=== PATIENT | female | born 1980 | race Two or more races ===

== ENCOUNTER 2018-06-08 18:25 | Emergency (ER) | payer MEDICAID ==
[~2018-06-08] VITALS: Ht 154.9 cm; Wt 77.1 kg
[2018-06-08] MEDS ORDERED: NKM (18:41)
--- NOTE | 2018-06-08 18:45 | NUR ---
ED Nurse Note: Pt walked in due to chest pain on sternal area started 1730 today. Pain 2/10 ira. Pt stated it happend to her before and was relieved by position change. Pain worsen with movement. AOx4, VSS ira. Will cont to monitor.
[2018-06-08 18:48] VITALS: BP 120/84
--- NOTE | 2018-06-08 19:11 | NUR ---
ED Nurse Note: Received report from Raegan Hernández RN. Pt in restroom getting urine sample. Day shift RN reported stable VS, sternal chest pain 2/10 and labs already drawn. Pt AAOx4, ambulatory and stable. Will continue to monitor.
[2018-06-08] MEDS ORDERED: Lidocaine 2% Visc 15ml soln ORAL ONE (19:30)
[2018-06-08 19:38] LABS: ANION GAP 8 mmol/L (5-15); BLOOD UREA NITROGEN 14 mg/dL (7-18); CALCIUM 9.1 MG/DL (8.5-10.1); CARBON DIOXIDE 26 MMOL/L (21-32); CHLORIDE 104 MMOL/L (98-107); CREATININE 1.1 MG/DL (0.55-1.30); POTASSIUM 3.5 MMOL/L (3.5-5.1); SODIUM 138 MMOL/L (136-145)
[2018-06-08 19:51] LABS: ALANINE AMINOTRANSFERASE 39 U/L (12-78); ALBUMIN 3.6 G/DL (3.4-5.0); ALBUMIN/GLOBULIN RATIO 0.8 (1.0-2.7); ALKALINE PHOSPHATASE 90 U/L (46-116); ASPARTATE AMINO TRANSFERASE 21 U/L (15-37); BILIRUBIN,TOTAL 0.3 MG/DL (0.2-1.0); CKMB 1.2 NG/ML (0.0-3.6); CREATINE KINASE 114 U/L (26-308)
[2018-06-08 19:53] LABS: BASOPHILS % (AUTO) 1.1 % (0.0-2.0); EOSINOPHILS % (AUTO) 2.9 % (0.0-3.0); HEMOGLOBIN 12.4 G/DL (12.0-16.0); LYMPHOCYTES % (AUTO) 20.2 % (20.0-45.0); MEAN CORPUSCULAR VOLUME 84 FL (80-99); MONOCYTES % (AUTO) 6.1 % (1.0-10.0); NEUTROPHILS % (AUTO) 69.7 % (45.0-75.0); PLATELET COUNT 239 K/UL (150-450); RED BLOOD COUNT 4.43 M/UL (4.20-5.40); RED CELL DISTRIBUTION WIDTH 12.5 % (11.6-14.8); WHITE BLOOD COUNT 9.3 K/UL (4.8-10.8)
--- NOTE | 2018-06-08 20:08 | Emergency Room Report ---
History of Present Illness General Chief Complaint: Chest Pain Source: Patient Present Illness HPI This patient states that around 5 PM today she developed pain in her mid lower chest. She states that she also got nauseated and became short of breath. She states that both her hands became tingly at that time. She states that the symptoms have persisted. She did have a meal about an hour and a half prior to the onset of the symptoms. She has had these same symptoms about 4 times in the past. She always has a negative evaluation. She denies recent illness. She denies fever or chills. She denies abdominal pain. She denies dysuria or hematuria. She denies headache or neck pain. She has no other complaints. Allergies: Coded Allergies: No Known Allergies (Unverified , 06/08/18) Patient History Past Medical History: none, see triage record Past Surgical History: none Social History: Denies: smoking, alcohol use, drug use Last Menstrual Period: may Now: No Reviewed Nursing Documentation: PMH: Agreed; PSxH: Agreed Nursing Documentation-PMH Past Medical History: No Stated History Review of Systems All Other Systems: negative except mentioned in HPI Physical Exam Vital Signs Date Time Temp Pulse Resp B/P (MAP) Pulse Ox O2 Delivery O2 Flow Rate FiO2 06/08/18 18:33 97.9 89 16 95 Room Air 06/08/18 18:48 120/84 Sp02 EP Interpretation: reviewed, normal General Appearance: no apparent distress, alert, GCS 15, non-toxic Head: normocephalic, atraumatic Eyes: bilateral eye normal inspection, bilateral eye PERRL ENT: hearing grossly normal, normal pharynx, no angioedema, normal voice Neck: full range of motion, supple/symm/no masses Respiratory: chest non-tender, lungs clear, normal breath sounds, no respiratory distress, no retraction, no accessory muscle use, speaking full sentences Cardiovascular #1: regular rate, rhythm, no edema Gastrointestinal: normal bowel sounds, non tender, soft, non-distended, no guarding, no rebound Rectal: deferred Musculoskeletal: back normal, gait/station normal, normal range of motion, non- tender Neurologic: alert, oriented x3, responsive, motor strength/tone normal, sensory intact, speech normal Psychiatric: judgement/insight normal, memory normal, mood/affect normal, no suicidal/homicidal ideation Skin: normal color, no rash, warm/dry, well hydrated Medical Decision Making Diagnostic Impression: Primary Impression: Chest pain ER Course This patient has nonspecific chest pain. Given the length of symptoms, this workup is very reassuring with negative cardiac enzymes, normal EKG, and normal chest x-ray. The patient is low risk and his symptoms are atypical for acute coronary syndrome. I have very low suspicion for PE, aortic dissection or pneumothorax based on history/physical, laboratory and radiologic workup. I suspect this patient has acid reflux/gastritis. I considered other concerning differentials, to include appendicitis, cholelithiasis, cholecystitis, pancreatitis, perforated viscus, aortic aneurysm, and pyelonephritis to name a few. However, laboratory workup in combination with medical and surgical history and physical exam makes these unlikely at this time. I did educate the patient on close return precautions and followup instructions. Laboratory Tests Test 06/08/18 18:55 White Blood Count 9.3 K/UL (4.8-10.8) Red Blood Count 4.43 M/UL (4.20-5.40) Hemoglobin 12.4 G/DL (12.0-16.0) Hematocrit 37.0 % (37.0-47.0) Mean Corpuscular Volume 84 FL (80-99) Mean Corpuscular Hemoglobin 27.9 PG (27.0-31.0) Mean Corpuscular Hemoglobin Concent 33.4 G/DL (32.0-36.0) Red Cell Distribution Width 12.5 % (11.6-14.8) Platelet Count 239 K/UL (150-450) Mean Platelet Volume 6.5 FL (6.5-10.1) Neutrophils (%) (Auto) 69.7 % (45.0-75.0) Lymphocytes (%) (Auto) 20.2 % (20.0-45.0) Monocytes (%) (Auto) 6.1 % (1.0-10.0) Eosinophils (%) (Auto) 2.9 % (0.0-3.0) Basophils (%) (Auto) 1.1 % (0.0-2.0) Urine HCG, Qualitative Negative (NEGATIVE) Sodium Level 138 MMOL/L (136-145) Potassium Level 3.5 MMOL/L (3.5-5.1) Chloride Level 104 MMOL/L (98-107) Carbon Dioxide Level 26 MMOL/L (21-32) Anion Gap 8 mmol/L (5-15) Blood Urea Nitrogen 14 mg/dL (7-18) Creatinine 1.1 MG/DL (0.55-1.30) Estimate Glomerular Filtration Rate 56.5 mL/min (>60) Glucose Level 124 MG/DL (74-106) H Calcium Level 9.1 MG/DL (8.5-10.1) Total Bilirubin 0.3 MG/DL (0.2-1.0) Aspartate Amino Transferase (AST) 21 U/L (15-37) Alanine Aminotransferase (ALT) 39 U/L (12-78) Alkaline Phosphatase 90 U/L (46-116) Total Creatine Kinase 114 U/L (26-308) Creatine Kinase MB 1.2 NG/ML (0.0-3.6) Creatine Kinase MB Relative Index 1.0 Troponin I 0.000 ng/mL (0.000-0.056) Total Protein 7.9 G/DL (6.4-8.2) Albumin 3.6 G/DL (3.4-5.0) Globulin 4.3 g/dL Albumin/Globulin Ratio 0.8 (1.0-2.7) L Urine Opiates Screen Pending Urine Barbiturates Screen Pending Phencyclidine (PCP) Screen Pending Urine Amphetamines Screen Pending Urine Benzodiazepines Screen Pending Urine Cocaine Screen Pending Urine Marijuana (THC) Screen Pending EKG Diagnostic Results Rate: normal Rhythm: NSR ST Segments: no acute changes Rhythm Strip Diag. Results EP Interpretation: yes Rate: 70's Rhythm: NSR, no PVC's, no ectopy Chest X-Ray Diagnostic Results Chest X-Ray Diagnostic Results : Chest X-Ray Ordered: Yes # of Views/Limited/Complete: 1 View Indication: Chest Pain EP Interpretation: Yes Interpretation: no consolidation, no effusion, no pneumothorax, no acute cardiopulmonary disease Impression: No acute disease Electronically Signed by: DO Leo Ruiz Vital Signs Date Time Temp Pulse Resp B/P (MAP) Pulse Ox O2 Delivery O2 Flow Rate FiO2 06/08/18 18:48 83 18 120/84 98 Room Air 06/08/18 18:33 97.9 Status: improved Disposition: HOME, SELF-CARE Condition: Improved Referrals: NOT CHOSEN IPA/MD,REFERRING (PCP) Patient Instructions: Nonspecific Chest Pain, Heartburn Stella Calzada DO June 08, 2018 20:08
[2018-06-08] MEDS ORDERED: MAALOX MAXIMUM355 M1 PO (20:09)
[2018-06-08] MEDS ORDERED: RANITIDINE HCL150 MG ORAL (20:09)
[2018-06-08 20:34] VITALS: BP 120/84
--- NOTE | 2018-06-08 20:36 | NUR ---
ED Nurse Note: Pt ready for discharge, AAOx4, ambulatory. Pt signed and given discharge paperwork. Pt took all belongings she came with. Pt and spouse verbally confirmed understanding discharges instructions. Pt stable and left via private vehicle.
--- NOTE | 2018-06-09 14:43 | Diagnostic Imaging Report ---
Indication: Chest pain Technique: One view of the chest Comparison: none Findings: Lungs and pleural spaces are clear. Heart size is normal Impression: No acute process
--- NOTE | 2018-06-09 15:24 | Cardiology Report ---
APPROVED REPORT EKG Measurement Heart [id number] Normal sinus rhythm Normal ECG
== END 2018-06-08 20:39 | disposition home or self-care (01) ==
LOC: EMR 19:01
DX: R10.9 Unspecified abdominal pain (principal)
CPT/HCPCS: 36415; 71045; 80053; 80307; 81025; 82550; 82553; 84484; 85025; 93005; 96374; 99284; S0028

== ENCOUNTER 2018-10-22 18:20 | Inpatient (IN) | payer MEDICAID ==
[~2018-10-22] VITALS: Ht 152.4 cm; Wt 78.5 kg
[~2018-10-22 18:20] MED LIST: MAALOX MAXIMUM355 M1 PO; NKM; RANITIDINE HCL150 MG ORAL
[2018-10-22 18:31] VITALS: BP 142/88
[2018-10-22] MEDS ORDERED: Morphine Sulfate 4mg/ml Inj (IV USE ONLY) IVP ONE (18:45)
[2018-10-22] MEDS ORDERED: Isovue-300 100ml vial INJ PRN (18:45)
[2018-10-22 18:56] LABS: BASOPHILS % (AUTO) 0.8 % (0.0-2.0); EOSINOPHILS % (AUTO) 1.2 % (0.0-3.0); HEMATOCRIT 40.6 % (37.0-47.0); HEMOGLOBIN 13.4 G/DL (12.0-16.0); LYMPHOCYTES % (AUTO) 17.4 % (20.0-45.0); MEAN CORPUSCULAR VOLUME 87 FL (80-99); MONOCYTES % (AUTO) 6.9 % (1.0-10.0); NEUTROPHILS % (AUTO) 73.6 % (45.0-75.0); PLATELET COUNT 282 K/UL (150-450); RED BLOOD COUNT 4.65 M/UL (4.20-5.40); RED CELL DISTRIBUTION WIDTH 11.8 % (11.6-14.8)
[2018-10-22 19:05] LABS: ANION GAP 10 mmol/L (5-15); BLOOD UREA NITROGEN 11 mg/dL (7-18); CALCIUM 8.9 MG/DL (8.5-10.1); CARBON DIOXIDE 25 MMOL/L (21-32); CHLORIDE 104 MMOL/L (98-107); CREATININE 0.7 MG/DL (0.55-1.30); POTASSIUM 3.5 MMOL/L (3.5-5.1); SODIUM 139 MMOL/L (136-145)
[2018-10-22 19:15] LABS: ALANINE AMINOTRANSFERASE 487 U/L (12-78); ALBUMIN 3.8 G/DL (3.4-5.0); ALBUMIN/GLOBULIN RATIO 0.9 (1.0-2.7); ALKALINE PHOSPHATASE 133 U/L (46-116); ASPARTATE AMINO TRANSFERASE 448 U/L (15-37); BILIRUBIN,TOTAL 1.9 MG/DL (0.2-1.0)
--- NOTE | 2018-10-22 19:15 | Emergency Room Report ---
History of Present Illness General Chief Complaint: Abdominal Pain Source: Patient Present Illness HPI 38-year-old female no past medical history presents with right upper quadrant pain that started 1 day ago, patient has not been able to tolerate p.o. since then, patient endorses a sharp pain no aggravating or alleviating factors, it started after eating a meal at 11 AM, patient denies any chest pain shortness of breath patient endorses a right sharp pain severity is moderate, constant. Patient presents for evaluation Allergies: Coded Allergies: No Known Allergies (Unverified , 06/08/18) Patient History Past Medical History: see triage record Last Menstrual Period: 9-6 Now: No Reviewed Nursing Documentation: PMH: Agreed; PSxH: Agreed Nursing Documentation-PMH Past Medical History: No History, Except For Hx Gastrointestinal Problems: Yes - GERD Review of Systems All Other Systems: negative except mentioned in HPI Physical Exam Vital Signs Date Time Temp Pulse Resp B/P (MAP) Pulse Ox O2 Delivery O2 Flow Rate FiO2 10/22/18 18:23 98.8 84 20 144/90 (108) 99 Room Air Sp02 EP Interpretation: reviewed, normal General Appearance: well appearing, no apparent distress, alert Head: normocephalic, atraumatic Eyes: bilateral eye PERRL, bilateral eye EOMI ENT: uvula midline, moist mucus membranes Neck: supple, thyroid normal, supple/symm/no masses Respiratory: lungs clear, no respiratory distress, no retraction, no accessory muscle use Cardiovascular #1: normal peripheral pulses, regular rate, rhythm, no edema, no gallop, no murmur Gastrointestinal: soft, no guarding, no rebound, tenderness - Right upper quadrant, overweight Musculoskeletal: normal inspection Neurologic: alert, oriented x3 Psychiatric: mood/affect normal Skin: no rash, warm/dry Medical Decision Making Diagnostic Impression: Primary Impression: Cholelithiasis Qualified Codes: K80.20 - Calculus of gallbladder without cholecystitis without obstruction Additional Impression: Transaminitis ER Course 38-year-old female presents with right upper quadrant pain differential diagnosis includes appendicitis, cholecystitis, cholelithiasis, choledocholithiasis Patient found to have gallstones in the gallbladder, patient also found to have a slight transaminitis Patient will be admitted for pain control, possible gallbladder removal Dr. Palm consulted 9:02pm Will admit patient to Dr. Jefferson Laboratory Tests Test 10/22/18 18:40 10/22/18 19:50 White Blood Count 9.0 K/UL (4.8-10.8) Red Blood Count 4.65 M/UL (4.20-5.40) Hemoglobin 13.4 G/DL (12.0-16.0) Hematocrit 40.6 % (37.0-47.0) Mean Corpuscular Volume 87 FL (80-99) Mean Corpuscular Hemoglobin 28.7 PG (27.0-31.0) Mean Corpuscular Hemoglobin Concent 32.9 G/DL (32.0-36.0) Red Cell Distribution Width 11.8 % (11.6-14.8) Platelet Count 282 K/UL (150-450) Mean Platelet Volume 6.8 FL (6.5-10.1) Neutrophils (%) (Auto) 73.6 % (45.0-75.0) Lymphocytes (%) (Auto) 17.4 % (20.0-45.0) L Monocytes (%) (Auto) 6.9 % (1.0-10.0) Eosinophils (%) (Auto) 1.2 % (0.0-3.0) Basophils (%) (Auto) 0.8 % (0.0-2.0) Sodium Level 139 MMOL/L (136-145) Potassium Level 3.5 MMOL/L (3.5-5.1) Chloride Level 104 MMOL/L (98-107) Carbon Dioxide Level 25 MMOL/L (21-32) Anion Gap 10 mmol/L (5-15) Blood Urea Nitrogen 11 mg/dL (7-18) Creatinine 0.7 MG/DL (0.55-1.30) Estimate Glomerular Filtration Rate > 60 mL/min (>60) Glucose Level 125 MG/DL (74-106) H Calcium Level 8.9 MG/DL (8.5-10.1) Total Bilirubin 1.9 MG/DL (0.2-1.0) H Direct Bilirubin 1.1 MG/DL (0.0-0.3) H Aspartate Amino Transferase (AST) 448 U/L (15-37) H Alanine Aminotransferase (ALT) 487 U/L (12-78) H Alkaline Phosphatase 133 U/L (46-116) H Total Protein 8.2 G/DL (6.4-8.2) Albumin 3.8 G/DL (3.4-5.0) Globulin 4.4 g/dL Albumin/Globulin Ratio 0.9 (1.0-2.7) L Lipase 81 U/L (73-393) Human Chorionic Gonadotropin, Quant < 1 mIU/mL (1-6) L Urine Color Yellow Urine Appearance Slightly cloudy Urine pH 7 (4.5-8.0) Urine Specific [place] 1.010 (1.005-1.035) Urine Protein Negative (NEGATIVE) Urine Glucose (UA) Negative (NEGATIVE) Urine Ketones Negative (NEGATIVE) Urine Blood Negative (NEGATIVE) Urine Nitrite Negative (NEGATIVE) Urine Bilirubin Negative (NEGATIVE) Urine Urobilinogen Normal MG/DL (0.0-1.0) Urine Leukocyte Esterase Negative (NEGATIVE) Urine RBC 0 /HPF (0 - 2) Urine WBC 0 /HPF (0 - 2) Urine Squamous Epithelial Cells Few /LPF (NONE/OCC) Urine Bacteria None /HPF (NONE) Urine HCG, Qualitative Negative (NEGATIVE) EKG Diagnostic Results EKG Time: 18:39 EP Interpretation: NSR, rate 23, QTc 445, no acute ST elevations, normal axis Rhythm Strip Diag. Results Rhythm Strip Time: 19:15 EP Interpretation: yes Rate: 88 Rhythm: NSR, no PVC's, no ectopy CT/MRI/US Diagnostic Results CT/MRI/US Diagnostic Results : Impression Right upper quadrant ultrasound: Gallstones present, no evidence of cholecystitis Preliminary Findings Only See Final Report For Complete Findings CT ABDOMEN & PELVIS With Contrast: EXAM: CT Abdomen and Pelvis With Intravenous Contrast CLINICAL HISTORY: ABD PAIN TECHNIQUE: Axial computed tomography images of the abdomen and pelvis with intravenous contrast. Coronal and sagittal reformatted images were created and reviewed. COMPARISON: none FINDINGS: Lung bases: The lung bases are unremarkable. ABDOMEN: Liver: Severe fatty infiltration Gallbladder and bile ducts: Normal Pancreas: Normal Spleen: Normal Adrenals: Normal . Kidneys and ureters: Normal Stomach and bowel: Normal Appendix: Normal PELVIS: Bladder: Normal Reproductive: Normal ABDOMEN and PELVIS: Intraperitoneal space: No free intraperitoneal fluid or free intraperitoneal gas. Bones/joints: Unremarkable. No acute fracture. No dislocation. Soft tissues: Fat containing umbilical hernia. Vasculature: Circumaortic left renal vein. Lymph nodes: Normal . IMPRESSION: Fatty liver. Otherwise no acute abdominal or pelvic pathology Last Vital Signs Date Time Temp Pulse Resp B/P (MAP) Pulse Ox O2 Delivery O2 Flow Rate FiO2 10/22/18 18:31 98.4 85 20 142/88 99 Room Air Disposition: ADMITTED INPATIENT Condition: Stable Benjamín Hensley MD Oct 22, 2018 19:15
[2018-10-22 19:16] LABS: BILIRUBIN,DIRECT 1.1 MG/DL (0.0-0.3)
[2018-10-22 19:58] LABS: APPEARANCE,URINE SLIGHTLY CLOUDY; BILIRUBIN, URINE NEGATIVE (NEGATIVE); GLUCOSE, URINE (UA) NEGATIVE (NEGATIVE); KETONES,URINE NEGATIVE (NEGATIVE); LEUKOCYTE ESTERASE ,URINE NEGATIVE (NEGATIVE); NITRITE,URINE NEGATIVE (NEGATIVE); PH,URINE 7 (4.5-8.0); PROTEIN,URINE NEGATIVE (NEGATIVE); UROBILINOGEN,URINE NORMAL MG/DL (0.0-1.0)
[2018-10-22 19:59] LABS: COLOR,URINE YELLOW
[2018-10-22 20:38] VITALS: BP 138/86
[2018-10-22] MEDS ORDERED: Acetaminophen 650 MG SUPP RECTAL PRN ×2 (21:15)
[2018-10-22] MEDS ORDERED: Morphine Sulfate 2mg/ml Inj(IV/IM USE ONLY) IVP PRN (21:15)
[2018-10-22] MEDS ORDERED: Morphine Sulfate 4mg/ml Inj (IV USE ONLY) IVP PRN (21:15)
--- NOTE | 2018-10-22 21:27 | Diagnostic Imaging Report ---
Indication: Abdominal pain Technique: Continuous helical transaxial imaging of the abdomen and pelvis was obtained from the lung bases to the pubic symphysis during intravenous contrast administration. Coronal 2-D reformats were also obtained. Study obtained in a Siemens sensation [address] Automatic Exposure Control was utilized. Total Dose length Product (DLP): 976.[address] Dose Index Volume (CTDIvol): 17.73 mGy Comparison: None Findings: There is mild dependent posterior basal atelectasis and a small hiatal hernia. The liver is diffusely hypodense consistent with fatty infiltration and is enlarged measuring about 20 cm. Gallbladder is mildly distended. The pancreas, adrenal glands and spleen, both kidneys are unremarkable. Bowel gas pattern is nonobstructive. The appendix is normal. There is an umbilical hernia containing fat. Uterus is noted. Urinary bladder is unremarkable. There is no free fluid. IMPRESSION: Hepatomegaly with fatty infiltration. Other findings as above. [facility] has communicated the preliminary results to the Emergency Department. Their findings are largely concordant with this report. The CT scanner at [facility] is accredited by the [employer] and the scans are performed using dose optimization techniques as appropriate to a performed exam including Automatic Exposure control.
[2018-10-22 21:30] VITALS: BP 121/73
[2018-10-22] MEDS: 1/2NS w/KCl 20mEq 1000ml 1,000 ML IV SCH (22:00)
[2018-10-22] MEDS: Heparin 5000 units/ml inj SUBQ SCH (22:01)
[2018-10-22] MEDS: cefOXitin Sod 1 GM in D5W 55 ML IVPB SCH (22:07)
--- NOTE | 2018-10-22 22:09 | Diagnostic Imaging Report ---
Indication: Abdominal pain Technique: Grayscale and duplex Doppler imaging of the abdomen performed. Comparison: None Findings: The liver is echogenic consistent with fatty infiltration. Doppler interrogation of the main portal vein shows patency with hepatopedal, monophasic flow. There is no biliary ductal dilatation identified. Multiple gallstones are demonstrated. CBD is 6 mm. There is no gallbladder wall thickening. There demonstrated part of the pancreas, aorta and IVC show no definite abnormalities. Both kidneys appear unremarkable. There is no hydronephrosis. IMPRESSION: Cholelithiasis Fatty liver
[2018-10-23] VITALS (7 sets, daily range): BP systolic 100–130; BP diastolic 56–96
[2018-10-23] MEDS: cefOXitin Sod 1 GM in D5W 55 ML IVPB SCH ×4 (04:15→21:32)
[2018-10-23 05:39] LABS: BASOPHILS % (AUTO) 1.2 % (0.0-2.0); EOSINOPHILS % (AUTO) 2.7 % (0.0-3.0); HEMATOCRIT 38.9 % (37.0-47.0); HEMOGLOBIN 12.8 G/DL (12.0-16.0); LYMPHOCYTES % (AUTO) 24.4 % (20.0-45.0); MEAN CORPUSCULAR VOLUME 87 FL (80-99); MONOCYTES % (AUTO) 6.5 % (1.0-10.0); NEUTROPHILS % (AUTO) 65.3 % (45.0-75.0); PLATELET COUNT 228 K/UL (150-450); RED BLOOD COUNT 4.44 M/UL (4.20-5.40); RED CELL DISTRIBUTION WIDTH 12.3 % (11.6-14.8); WHITE BLOOD COUNT 6.6 K/UL (4.8-10.8)
[2018-10-23] MEDS: 1/2NS w/KCl 20mEq 1000ml 1,000 ML IV SCH ×3 (05:51→18:38)
[2018-10-23 06:20] LABS: ALANINE AMINOTRANSFERASE 582 U/L (12-78); ALBUMIN 3.2 G/DL (3.4-5.0); ALBUMIN/GLOBULIN RATIO 0.9 (1.0-2.7); ALKALINE PHOSPHATASE 129 U/L (46-116); ANION GAP 6 mmol/L (5-15); ASPARTATE AMINO TRANSFERASE 433 U/L (15-37); BLOOD UREA NITROGEN 7 mg/dL (7-18); CALCIUM 8.4 MG/DL (8.5-10.1); CARBON DIOXIDE 26 MMOL/L (21-32); CHLORIDE 108 MMOL/L (98-107); CREATININE 0.9 MG/DL (0.55-1.30); POTASSIUM 3.9 MMOL/L (3.5-5.1); SODIUM 140 MMOL/L (136-145)
--- NOTE | 2018-10-23 10:20 | Consultation ---
History of Present Illness General Date patient seen: Oct 23, 2018 Reason for Hospitalization: Abdominal Pain Present Illness HPI 38 year old otherwise healthy female presented to ED with complaints of acute onset RUQ abd pain beginning yesterday. pain 6/10 cramping ruq after meal. did not subside and came to ED for eval. in ED noted to have abnormal lft's and imaging with cholelithiasis. Admitted for care and management. surgery called to evaluate. patient seen, chart reviewed, patient examined. no n/v/f/ c. pain improved since admission. states she is hungry now. Allergies: Coded Allergies: No Known Allergies (Unverified , 06/08/18) Medication History Scheduled Mag Hydrox/Al Hydrox/Simeth (Maalox Maximum Strength Susp), 10 ML PO Q4HR No Known Medications* (NKM - No Known Medications*), 0 ., (Reported) Ranitidine Hcl* (Zantac*), 150 MG ORAL TWICE A DAY Patient History History Provided By: Patient, Medical Record, PMD Healthcare decision maker Resuscitation status Full Code Advanced Directive on File Past Medical/Surgical History Past Medical/Surgical History: (1) Transaminitis (2) Cholelithiasis Review of Systems Review of Symptoms General ROS: no weight loss or fever Psychological ROS: no depression or mood changes, no memory loss Ophthalmic ROS: no visual changes or eye irritation ENT ROS: no nasal congestion, hearing loss, dizziness Allergy and Immunology ROS: no allergic symptoms or urticaria Hematological and Lymphatic ROS: no swollen glands, unusual bleeding or bruising Endocrine ROS: no polyuria, polydipsia, weight changes, temperature intolerance Respiratory ROS: no cough, shortness of breath, or wheezing Cardiovascular ROS: no chest pain or dyspnea on exertion Gastrointestinal ROS: denies abdominal pain, no bright red blood in stool. Musculoskeletal ROS: no myalgias or arthralgias Neurological ROS: no TIA or stroke symptoms Dermatological ROS: no new or changing skin lesions, rashes or pruritis Physical Exam Physical Exam General appearance: alert, cooperative, no distress, appears stated age Head: Normocephalic, without obvious abnormality, atraumatic Eyes: conjunctivae/corneas clear. PERRL, EOM's intact. Fundi benign Throat: Lips, mucosa, and tongue normal. Teeth and gums normal Neck: supple, symmetrical, trachea midline, no adenopathy, thyroid: not enlarged, symmetric, no tenderness/mass/nodules, no carotid bruit and no JVD Lungs: clear to auscultation bilaterally Heart: regular rate and rhythm, S1, S2 normal, no murmur, click, rub or gallop Abdomen: soft, mild RUQ-tender. Bowel sounds normal. No masses, no organomegaly Extremities: extremities normal, atraumatic, no cyanosis or edema Pulses: 2+ and symmetric Skin: Skin color, texture, turgor normal. No rashes or lesions Neurologic: Grossly normal Last 24 Hour Vital Signs Date Time Temp Pulse Resp B/P (MAP) Pulse Ox O2 Delivery O2 Flow Rate FiO2 10/23/18 04:00 98.5 76 16 101/66 (78) 98 10/23/18 00:00 97.9 83 17 111/74 (86) 97 10/22/18 22:25 Room Air 10/22/18 21:30 97.9 72 18 121/73 (89) 97 10/22/18 21:17 98.4 80 18 130/84 100 Room Air 80 10/22/18 20:38 98.2 79 17 138/86 98 Room Air 79 10/22/18 18:31 98.4 85 20 142/88 99 Room Air 10/22/18 18:31 82 18 Room Air 10/22/18 18:23 98.8 84 20 144/90 (108) 99 Room Air Intake and Output 10/22/18 10/23/18 19:00 07:00 Intake Total 2000 ml Balance 2000 ml Intake Oral 0 ml IV Total 2000 ml # Voids 3 Laboratory Tests Test 10/22/18 18:40 10/22/18 19:50 10/23/18 04:55 White Blood Count 9.0 K/UL (4.8-10.8) 6.6 K/UL (4.8-10.8) Red Blood Count 4.65 M/UL (4.20-5.40) 4.44 M/UL (4.20-5.40) Hemoglobin 13.4 G/DL (12.0-16.0) 12.8 G/DL (12.0-16.0) Hematocrit 40.6 % (37.0-47.0) 38.9 % (37.0-47.0) Mean Corpuscular Volume 87 FL (80-99) 87 FL (80-99) Mean Corpuscular Hemoglobin 28.7 PG (27.0-31.0) 28.8 PG (27.0-31.0) Mean Corpuscular Hemoglobin Concent 32.9 G/DL (32.0-36.0) 32.9 G/DL (32.0-36.0) Red Cell Distribution Width 11.8 % (11.6-14.8) 12.3 % (11.6-14.8) Platelet Count 282 K/UL (150-450) 228 K/UL (150-450) Mean Platelet Volume 6.8 FL (6.5-10.1) 7.1 FL (6.5-10.1) Neutrophils (%) (Auto) 73.6 % (45.0-75.0) 65.3 % (45.0-75.0) Lymphocytes (%) (Auto) 17.4 % (20.0-45.0) L 24.4 % (20.0-45.0) Monocytes (%) (Auto) 6.9 % (1.0-10.0) 6.5 % (1.0-10.0) Eosinophils (%) (Auto) 1.2 % (0.0-3.0) 2.7 % (0.0-3.0) Basophils (%) (Auto) 0.8 % (0.0-2.0) 1.2 % (0.0-2.0) Sodium Level 139 MMOL/L (136-145) 140 MMOL/L (136-145) Potassium Level 3.5 MMOL/L (3.5-5.1) 3.9 MMOL/L (3.5-5.1) Chloride Level 104 MMOL/L (98-107) 108 MMOL/L (98-107) H Carbon Dioxide Level 25 MMOL/L (21-32) 26 MMOL/L (21-32) Anion Gap 10 mmol/L (5-15) 6 mmol/L (5-15) Blood Urea Nitrogen 11 mg/dL (7-18) 7 mg/dL (7-18) Creatinine 0.7 MG/DL (0.55-1.30) 0.9 MG/DL (0.55-1.30) Estimat Glomerular Filtration Rate > 60 mL/min (>60) > 60 mL/min (>60) Glucose Level 125 MG/DL (74-106) H 125 MG/DL (74-106) H Calcium Level 8.9 MG/DL (8.5-10.1) 8.4 MG/DL (8.5-10.1) L Total Bilirubin 1.9 MG/DL (0.2-1.0) H 2.0 MG/DL (0.2-1.0) H Direct Bilirubin 1.1 MG/DL (0.0-0.3) H 1.0 MG/DL (0.0-0.3) H Aspartate Amino Transf (AST/SGOT) 448 U/L (15-37) H 433 U/L (15-37) H Alanine Aminotransferase (ALT/SGPT) 487 U/L (12-78) H 582 U/L (12-78) H Alkaline Phosphatase 133 U/L (46-116) H 129 U/L (46-116) H Total Protein 8.2 G/DL (6.4-8.2) 6.9 G/DL (6.4-8.2) Albumin 3.8 G/DL (3.4-5.0) 3.2 G/DL (3.4-5.0) L Globulin 4.4 g/dL 3.7 g/dL Albumin/Globulin Ratio 0.9 (1.0-2.7) L 0.9 (1.0-2.7) L Lipase 81 U/L (73-393) Human Chorionic Gonadotropin, Quant < 1 mIU/mL (1-6) L Urine Color Yellow Urine Appearance Slightly cloudy Urine pH 7 (4.5-8.0) Urine Specific [place] 1.010 (1.005-1.035) Urine Protein Negative (NEGATIVE) Urine Glucose (UA) Negative (NEGATIVE) Urine Ketones Negative (NEGATIVE) Urine Blood Negative (NEGATIVE) Urine Nitrite Negative (NEGATIVE) Urine Bilirubin Negative (NEGATIVE) Urine Urobilinogen Normal MG/DL (0.0-1.0) Urine Leukocyte Esterase Negative (NEGATIVE) Urine RBC 0 /HPF (0 - 2) Urine WBC 0 /HPF (0 - 2) Urine Squamous Epithelial Cells Few /LPF (NONE/OCC) Urine Bacteria None /HPF (NONE) Urine HCG, Qualitative Negative (NEGATIVE) Height (Feet): 5 Height (Inches): 0.00 Weight (Pounds): 173 Medications Current Medications Medications (Trade) Dose Ordered Sig/Pedro Luis Route PRN Reason Start Time Stop Time Status Last Admin Dose Admin Acetaminophen (Tylenol) 650 mg Q4H PRN ORAL Mild Pain (Pain Scale 1-3) 10/22/18 21:15 11/21/18 21:14 Acetaminophen (Tylenol) 650 mg Q4H PRN ORAL fever 10/22/18 21:15 11/21/18 21:14 Acetaminophen (Tylenol) 650 mg Q4H PRN RECTAL Mild Pain (Pain Scale 1-3) 10/22/18 21:15 11/21/18 21:14 Acetaminophen (Tylenol) 650 mg Q4H PRN RECTAL fever PO/HI 10/22/18 21:15 11/21/18 21:14 Cefoxitin Sodium 1 gm/Dextrose 55 ml @ 110 mls/hr Q6H IVPB 10/22/18 22:00 10/29/18 21:59 10/23/18 04:15 Dextrose (Dextrose 50%) 25 ml Q30M PRN IV Hypoglycemia 10/22/18 21:15 11/21/18 21:14 Dextrose (Dextrose 50%) 50 ml Q30M PRN IV Hypoglycemia 10/22/18 21:15 11/21/18 21:14 Heparin Sodium (Porcine) (Heparin 5000 units/ml) 5,000 units EVERY 12 HOURS SUBQ 10/22/18 21:15 11/21/18 21:14 10/22/18 22:01 Iopamidol (Isovue-300 100ml) 100 ml NOW PRN INJ Radiology Procedure 10/22/18 18:45 Morphine Sulfate (Morphine Sulfate) 2 mg Q2H PRN IVP Moderate Pain (Pain Scale 4-6) 10/22/18 21:15 10/29/18 21:14 Morphine Sulfate (Morphine Sulfate) 4 mg Q2H PRN IVP Severe Pain (Pain Scale 7-10) 10/22/18 21:15 10/29/18 21:14 Ondansetron HCl (Zofran) 4 mg Q6H PRN IVP Nausea & Vomiting 10/22/18 21:15 11/21/18 21:14 Sodium 1,000 ml @ 125 mls/hr Q8H IV 10/22/18 22:03 11/21/18 22:02 10/23/18 05:51 Assessment/Plan Problem List: (1) Transaminitis ICD Codes: R74.0 - Nonspecific elevation of levels of transaminase and lactic acid dehydrogenase [LDH] SNOMED: 382430810, [id number] (2) Cholelithiasis Assessment & Plan: Acute cholecystitis afebrile, HD stable, no leukocytosis, lfts elevated, RUQ tenderness improving US noted CT noted MRCP to eval for CBD stone npo for now iv fluids abx will follow with recs thank you ICD Codes: K80.20 - Calculus of gallbladder without cholecystitis without obstruction SNOMED: 281911120, [id number] Qualifiers: Qualified Codes: K80.20 - Calculus of gallbladder without cholecystitis without obstruction Status: stable Wojciech Monroy Oct 23, 2018 10:20
[2018-10-23] MEDS ORDERED: Gadavist 7.5mMol/7.5ml vial IV PRN (10:30)
[2018-10-23] MEDS: Heparin 5000 units/ml inj SUBQ SCH ×2 (10:53→21:30)
--- NOTE | 2018-10-23 10:58 | Diagnostic Imaging Report ---
Indication: Chest pain Comparison: 06/08/2018 A single view chest radiograph was obtained. Findings: Cardiomediastinal appearance is within normal limits for age. The lungs are clear. Pulmonary vascularity is appropriate. The diaphragmatic contour is smooth and costophrenic angles are sharp. No pleural effusions are identified. The bones are unremarkable. Impression: No acute findings
--- NOTE | 2018-10-23 15:23 | Diagnostic Imaging Report ---
Indication: Right upper quadrant abdominal pain Technique: MRI of the abdomen was performed in a 1.5 Luna magnet. Pulse sequences obtained include coronal and axial T2 single shot fast spin echo breathhold and respiratory gated coronal T2 3-D M.R.C.P.; this data set was displayed in different projections or MIPs. In addition, multiple coronal oblique thin T2 weighted, fat saturated SE sequences obtained through the CBD. In and out of phase T1 gradient echo, axial 2-D fiesta, axial T2 fat sat. Comparison: None Findings: Examination shows a mild gallbladder wall thickening and presence of multiple gallstones. Gallbladder is somewhat distended. The CBD is normal. There is no intrahepatic biliary ductal dilatation. Pancreas is unremarkable. The kidneys are unremarkable. There is no free fluid. Some breathing motion noted. Signs of fatty liver infiltration noted on multiple sequences. For example, without of phase T1 sequence/chemical shift showing marked reduction in signal within the liver diffusely consistent with fatty infiltration and corroborated by recent CT. IMPRESSION: Cholelithiasis with wall thickening and mild distention. Correlate clinically for cholecystitis. Fatty liver
--- NOTE | 2018-10-23 18:35 | Cardiology Report ---
APPROVED REPORT EKG Measurement Heart [id number] Normal sinus rhythm Normal ECG
--- NOTE | 2018-10-24 01:00 | History and Physical Report ---
DATE OF ADMISSION: 10/22/2018 CHIEF COMPLAINT AND REASON FOR HOSPITALIZATION: The patient is admitted with right upper quadrant pain and cholelithiasis and elevated liver enzymes. HISTORY OF PRESENT ILLNESS: The patient has generally been in good health. Lives at home with family. She has had some symptoms for about 2 to 3 days prior to admission. Initially treated with [id number] Pepto-Bismol, Tylenol, and Zantac, who presented to the emergency room, found to have cholelithiasis. She has generally been in good health. SURGERIES: section 1 time. MEDICATIONS: See history of present illness. ALLERGIES: None known. HABITS: She is a nondrinker and nonsmoker. No use of illicit drugs. SYSTEM REVIEW: Entirely negative except for the episode of abdominal pain as above and a prior emergency room visits for chest pain, which was thought to be secondary to gastritis. PHYSICAL EXAMINATION: GENERAL: The patient is an alert lady, in no acute distress. BMI is 53.8. VITAL SIGNS: Temperature 98.3, pulse 80, respirations 18, and blood pressure 103/96. HEENT: Sclerae are nonicteric. Ocular motion intact in all directions. Oral mucosa moist. NECK: No adenopathy or thyroid enlargement. LUNGS: Clear. HEART: Regular rhythm. No murmur. ABDOMEN: Soft and nondistended. There is mild pain to palpation in the right upper quadrant. No rebound. EXTREMITIES: No edema, cyanosis, or clubbing. LABORATORY AND DIAGNOSTIC DATA: Labs were reviewed on the computer. IMPRESSION: 1. Acute cholecystitis. 2. Transaminitis, possibly from fatty liver and possibly early cholangitis. 3. Obesity. 4. Glucose intolerance, 125 and 125 on repeat. PLAN: The patient is started on antibiotics, empirically NPO. Surgical consultation to assess her need for a possible procedure. This all explained to her via special education teaching assistant. Abe Jefferson M.D. DR: CHETNA JOB#: [id number] CC:
[2018-10-24] MEDS: cefOXitin Sod 1 GM in D5W 55 ML IVPB SCH ×4 (03:42→21:41)
[2018-10-24] MEDS: 1/2NS w/KCl 20mEq 1000ml 1,000 ML IV SCH ×3 (03:42→20:51)
[2018-10-24 03:52] VITALS: BP 119/69
[2018-10-24 05:38] LABS: BASOPHILS % (AUTO) 1.3 % (0.0-2.0); EOSINOPHILS % (AUTO) 4.2 % (0.0-3.0); HEMATOCRIT 38.2 % (37.0-47.0); HEMOGLOBIN 12.6 G/DL (12.0-16.0); MEAN CORPUSCULAR VOLUME 89 FL (80-99); MONOCYTES % (AUTO) 4.7 % (1.0-10.0); NEUTROPHILS % (AUTO) 59.8 % (45.0-75.0); PLATELET COUNT 226 K/UL (150-450); WHITE BLOOD COUNT 6.5 K/UL (4.8-10.8)
[2018-10-24 05:57] LABS: ALANINE AMINOTRANSFERASE 455 U/L (12-78); ALBUMIN 3.2 G/DL (3.4-5.0); ALBUMIN/GLOBULIN RATIO 0.8 (1.0-2.7); ALKALINE PHOSPHATASE 135 U/L (46-116); ANION GAP 9 mmol/L (5-15); ASPARTATE AMINO TRANSFERASE 157 U/L (15-37); BILIRUBIN,TOTAL 0.8 MG/DL (0.2-1.0); BLOOD UREA NITROGEN 6 mg/dL (7-18); CALCIUM 8.5 MG/DL (8.5-10.1); CARBON DIOXIDE 23 MMOL/L (21-32); CHLORIDE 106 MMOL/L (98-107); CREATININE 0.7 MG/DL (0.55-1.30); POTASSIUM 4.1 MMOL/L (3.5-5.1); SODIUM 138 MMOL/L (136-145)
[2018-10-24 08:00] VITALS: BP 115/71
[2018-10-24] MEDS: Heparin 5000 units/ml inj SUBQ SCH ×2 (10:02→20:51)
[2018-10-24 12:00] VITALS: BP 111/70
--- NOTE | 2018-10-24 15:36 | Surgery Progress Note ---
Surgery Progress Note Subjective Symptoms: improved, pain absent, tolerating diet, passing flatus Additional Comments MRCP noted symptoms resolved Objective Last 24 Hour Vital Signs Date Time Temp Pulse Resp B/P (MAP) Pulse Ox O2 Delivery O2 Flow Rate FiO2 10/24/18 12:00 97.9 65 21 111/70 (84) 97 10/24/18 09:00 Room Air 10/24/18 08:00 98.0 70 19 115/71 (86) 95 10/24/18 03:52 99.0 64 16 119/69 (86) 96 10/23/18 23:28 98.9 63 17 130/68 (88) 95 10/23/18 21:00 Room Air 10/23/18 20:00 98.9 66 17 127/66 (86) 95 10/23/18 16:00 98.1 73 17 106/61 (76) 97 18 I&O Intake and Output 10/23/18 10/24/18 19:00 07:00 Intake Total 1110 ml Balance 1110 ml IV Total 1110 ml # Voids 3 Cardiovascular: RSR Respiratory: clear Abdomen: soft, flat, non-tender, present bowel sounds, non-distended Extremities: no edema, no tenderness, no cyanosis Laboratory Tests Test 10/24/18 05:00 White Blood Count 6.5 K/UL (4.8-10.8) Red Blood Count 4.30 M/UL (4.20-5.40) Hemoglobin 12.6 G/DL (12.0-16.0) Hematocrit 38.2 % (37.0-47.0) Mean Corpuscular Volume 89 FL (80-99) Mean Corpuscular Hemoglobin 29.2 PG (27.0-31.0) Mean Corpuscular Hemoglobin Concent 32.9 G/DL (32.0-36.0) Red Cell Distribution Width 12.0 % (11.6-14.8) Platelet Count 226 K/UL (150-450) Mean Platelet Volume 6.8 FL (6.5-10.1) Neutrophils (%) (Auto) 59.8 % (45.0-75.0) Lymphocytes (%) (Auto) 30.0 % (20.0-45.0) Monocytes (%) (Auto) 4.7 % (1.0-10.0) Eosinophils (%) (Auto) 4.2 % (0.0-3.0) H Basophils (%) (Auto) 1.3 % (0.0-2.0) Prothrombin Time 10.7 SEC (9.30-11.50) Prothromb Time International Ratio 1.0 (0.9-1.1) Activated Partial Thromboplast Time 29 SEC (23-33) Sodium Level 138 MMOL/L (136-145) Potassium Level 4.1 MMOL/L (3.5-5.1) Chloride Level 106 MMOL/L (98-107) Carbon Dioxide Level 23 MMOL/L (21-32) Anion Gap 9 mmol/L (5-15) Blood Urea Nitrogen 6 mg/dL (7-18) L Creatinine 0.7 MG/DL (0.55-1.30) Estimat Glomerular Filtration Rate > 60 mL/min (>60) Glucose Level 88 MG/DL (74-106) Calcium Level 8.5 MG/DL (8.5-10.1) Total Bilirubin 0.8 MG/DL (0.2-1.0) Aspartate Amino Transf (AST/SGOT) 157 U/L (15-37) H Alanine Aminotransferase (ALT/SGPT) 455 U/L (12-78) H Alkaline Phosphatase 135 U/L (46-116) H Total Protein 7.2 G/DL (6.4-8.2) Albumin 3.2 G/DL (3.4-5.0) L Globulin 4.0 g/dL Albumin/Globulin Ratio 0.8 (1.0-2.7) L Plan Problems: (1) Transaminitis (2) Cholelithiasis Assessment & Plan: Acute cholecystitis afebrile, HD stable, no leukocytosis, lfts elevated, RUQ tenderness improving US noted CT noted MRCP okay labs improved diet abx d/c planning outpatient follow up for elective cholecystectomy will follow with recs thank you Wojciech Monroy Oct 24, 2018 15:36
[2018-10-24 16:00] VITALS: BP 100/62
--- NOTE | 2018-10-24 17:21 | General Progress Note ---
Assessment/Plan Problem List: (1) Cholelithiasis ICD Codes: K80.20 - Calculus of gallbladder without cholecystitis without obstruction SNOMED: 283362205, [id number] Qualifiers: Qualified Codes: K80.20 - Calculus of gallbladder without cholecystitis without obstruction (2) Transaminitis ICD Codes: R74.0 - Nonspecific elevation of levels of transaminase and lactic acid dehydrogenase [LDH] SNOMED: 264241143, [id number] Status: stable Assessment/Plan: clinically improving to start diet, d/w surgeon Subjective Constitutional: Reports: no symptoms HEENT: Reports: no symptoms Cardiovascular: Reports: no symptoms Respiratory: Reports: no symptoms Gastrointestinal/Abdominal: Reports: abdominal pain Genitourinary: Reports: no symptoms Neurologic/Psychiatric: Reports: no symptoms Endocrine: Reports: no symptoms Hematologic/Lymphatic: Reports: no symptoms Allergies: Coded Allergies: No Known Allergies (Unverified , 06/08/18) Objective Last 24 Hour Vital Signs Date Time Temp Pulse Resp B/P (MAP) Pulse Ox O2 Delivery O2 Flow Rate FiO2 10/24/18 12:00 97.9 65 21 111/70 (84) 97 10/24/18 09:00 Room Air 10/24/18 08:00 98.0 70 19 115/71 (86) 95 10/24/18 03:52 99.0 64 16 119/69 (86) 96 10/23/18 23:28 98.9 63 17 130/68 (88) 95 10/23/18 21:00 Room Air 10/23/18 20:00 98.9 66 17 127/66 (86) 95 Intake and Output 10/23/18 10/24/18 18:59 06:59 Intake Total 1110 ml Balance 1110 ml IV Total 1110 ml # Voids 3 Laboratory Tests 10/24/18 05:00: White Blood Count 6.5, Red Blood Count 4.30, Hemoglobin 12.6, Hematocrit 38.2, Mean Corpuscular Volume 89, Mean Corpuscular Hemoglobin 29.2, Mean Corpuscular Hemoglobin Concent 32.9, Red Cell Distribution Width 12.0, Platelet Count 226, Mean Platelet Volume 6.8, Neutrophils (%) (Auto) 59.8, Lymphocytes (%) (Auto) 30.0, Monocytes (%) (Auto) 4.7, Eosinophils (%) (Auto) 4.2H, Basophils (%) (Auto ) 1.3, Prothrombin Time 10.7, Prothromb Time International Ratio 1.0, Activated Partial Thromboplast Time 29, Sodium Level 138, Potassium Level 4.1, Chloride Level 106, Carbon Dioxide Level 23, Anion Gap 9, Blood Urea Nitrogen 6L, Creatinine 0.7, Estimat Glomerular Filtration Rate > 60, Glucose Level 88, Calcium Level 8.5, Total Bilirubin 0.8, Aspartate Amino Transf (AST/SGOT) 157H, Alanine Aminotransferase (ALT/SGPT) 455H, Alkaline Phosphatase 135H, Total Protein 7.2, Albumin 3.2L, Globulin 4.0, Albumin/Globulin Ratio 0.8L Height (Feet): 5 Height (Inches): 0.00 Weight (Pounds): 173 General Appearance: no apparent distress, obese EENT: normal ENT inspection Neck: normal alignment Cardiovascular: normal rate, regular rhythm Respiratory/Chest: lungs clear Abdomen: other - mild ruq tender Edema: no edema noted Arm (L), no edema noted Arm (R), no edema noted Leg (L), no edema noted Leg (R), no edema noted Pedal (L), no edema noted Pedal (R), no edema noted Generalized Neurologic: can handler II-XII grossly normal Abe Jefferson MD Oct 24, 2018 17:21
[2018-10-24 20:00] VITALS: BP 122/77
[2018-10-25] VITALS: BP 125/74
[2018-10-25 04:00] VITALS: BP 124/61
[2018-10-25] MEDS: 1/2NS w/KCl 20mEq 1000ml 1,000 ML IV SCH ×2 (04:15→12:13)
[2018-10-25] MEDS: cefOXitin Sod 1 GM in D5W 55 ML IVPB SCH ×3 (04:15→15:21)
[2018-10-25 06:26] LABS: EOSINOPHILS % (AUTO) 7.2 % (0.0-3.0); HEMATOCRIT 38.7 % (37.0-47.0); HEMOGLOBIN 12.6 G/DL (12.0-16.0); LYMPHOCYTES % (AUTO) 34.4 % (20.0-45.0); MEAN CORPUSCULAR VOLUME 87 FL (80-99); MONOCYTES % (AUTO) 6.9 % (1.0-10.0); NEUTROPHILS % (AUTO) 50.5 % (45.0-75.0); PLATELET COUNT 256 K/UL (150-450); RED BLOOD COUNT 4.43 M/UL (4.20-5.40); RED CELL DISTRIBUTION WIDTH 12.8 % (11.6-14.8); WHITE BLOOD COUNT 6.6 K/UL (4.8-10.8)
[2018-10-25 06:48] LABS: ALANINE AMINOTRANSFERASE 321 U/L (12-78); ALBUMIN 3.3 G/DL (3.4-5.0); ALBUMIN/GLOBULIN RATIO 0.8 (1.0-2.7); ALKALINE PHOSPHATASE 140 U/L (46-116); ANION GAP 6 mmol/L (5-15); ASPARTATE AMINO TRANSFERASE 85 U/L (15-37); BILIRUBIN,TOTAL 0.4 MG/DL (0.2-1.0); BLOOD UREA NITROGEN 9 mg/dL (7-18); CALCIUM 9.3 MG/DL (8.5-10.1); CARBON DIOXIDE 26 MMOL/L (21-32); CHLORIDE 106 MMOL/L (98-107); CREATININE 0.9 MG/DL (0.55-1.30); POTASSIUM 4.4 MMOL/L (3.5-5.1); SODIUM 138 MMOL/L (136-145)
[2018-10-25 08:00] VITALS: BP 107/63
[2018-10-25] MEDS: Heparin 5000 units/ml inj SUBQ SCH (09:55)
[2018-10-25 12:00] VITALS: BP 118/71
--- NOTE | 2018-10-25 14:02 | Surgery Progress Note ---
Surgery Progress Note Subjective Symptoms: improved, pain absent, tolerating diet, voiding well, passing flatus , BM Additional Comments labs improved Objective Last 24 Hour Vital Signs Date Time Temp Pulse Resp B/P (MAP) Pulse Ox O2 Delivery O2 Flow Rate FiO2 10/25/18 12:00 97.9 65 19 118/71 (87) 97 10/25/18 09:00 Room Air 10/25/18 08:00 98.4 63 16 107/63 (78) 96 10/25/18 04:00 98.2 71 18 124/61 (82) 96 10/25/18 00:00 98.8 79 17 125/74 (91) 96 10/24/18 21:00 Room Air 10/24/18 20:00 98.9 84 16 122/77 (92) 96 10/24/18 16:00 98.0 82 19 100/62 (75) 97 I&O Intake and Output 10/24/18 10/25/18 19:00 07:00 Intake Total 1295 ml 125 ml Balance 1295 ml 125 ml Intake Oral 240 ml IV Total 1055 ml 125 ml # Voids 5 3 Cardiovascular: RSR Respiratory: clear Abdomen: soft, flat, non-tender, present bowel sounds, non-distended Extremities: no edema, no tenderness, no cyanosis Laboratory Tests Test 10/25/18 05:05 White Blood Count 6.6 K/UL (4.8-10.8) Red Blood Count 4.43 M/UL (4.20-5.40) Hemoglobin 12.6 G/DL (12.0-16.0) Hematocrit 38.7 % (37.0-47.0) Mean Corpuscular Volume 87 FL (80-99) Mean Corpuscular Hemoglobin 28.5 PG (27.0-31.0) Mean Corpuscular Hemoglobin Concent 32.7 G/DL (32.0-36.0) Red Cell Distribution Width 12.8 % (11.6-14.8) Platelet Count 256 K/UL (150-450) Mean Platelet Volume 6.8 FL (6.5-10.1) Neutrophils (%) (Auto) 50.5 % (45.0-75.0) Lymphocytes (%) (Auto) 34.4 % (20.0-45.0) Monocytes (%) (Auto) 6.9 % (1.0-10.0) Eosinophils (%) (Auto) 7.2 % (0.0-3.0) H Basophils (%) (Auto) 1.0 % (0.0-2.0) Sodium Level 138 MMOL/L (136-145) Potassium Level 4.4 MMOL/L (3.5-5.1) Chloride Level 106 MMOL/L (98-107) Carbon Dioxide Level 26 MMOL/L (21-32) Anion Gap 6 mmol/L (5-15) Blood Urea Nitrogen 9 mg/dL (7-18) Creatinine 0.9 MG/DL (0.55-1.30) Estimat Glomerular Filtration Rate > 60 mL/min (>60) Glucose Level 136 MG/DL (74-106) H Calcium Level 9.3 MG/DL (8.5-10.1) Total Bilirubin 0.4 MG/DL (0.2-1.0) Aspartate Amino Transf (AST/SGOT) 85 U/L (15-37) H Alanine Aminotransferase (ALT/SGPT) 321 U/L (12-78) H Alkaline Phosphatase 140 U/L (46-116) H Total Protein 7.3 G/DL (6.4-8.2) Albumin 3.3 G/DL (3.4-5.0) L Globulin 4.0 g/dL Albumin/Globulin Ratio 0.8 (1.0-2.7) L Plan Problems: (1) Transaminitis (2) Cholelithiasis Assessment & Plan: Acute cholecystitis afebrile, HD stable, no leukocytosis, lfts elevated, RUQ tenderness improving US noted CT noted MRCP okay labs improved diet abx d/c planning outpatient follow up for elective cholecystectomy will follow with recs thank you Wojciech Monroy Oct 25, 2018 14:02
[2018-10-25 16:00] VITALS: BP 132/84
--- NOTE | 2018-10-25 20:30 | Discharge Summary ---
DATE OF ADMISSION: 10/22/2018 DATE OF DISCHARGE: 10/25/2018 PERTINENT HISTORY: The patient is admitted for right upper quadrant pain, cholelithiasis, elevated liver enzymes. There is no fever or chills. PERTINENT PHYSICAL FINDINGS: ABDOMEN: Soft, nondistended. There is mild pain to palpation in the right upper quadrant. No rebound. COURSE IN THE HOSPITAL: The patient was hydrated, given empiric antibiotics. She had imaging including abdominal ultrasound, CT, MRI, MRCP. There is evidence of cholelithiasis with wall thickening and mild distention. Pancreas unremarkable and some evidence of fatty liver. The patient did not have an acute abdomen and was felt not to need urgent surgery, would benefit by an elective cholecystectomy in the future. This is explained in detail to the patient with a staffing mgr. On the day of discharge, the patient is able to tolerate a diet. She had no tenderness to palpation. Stable vital signs. Discharged home in stable condition. FINAL DIAGNOSES: 1. Acute cholecystitis. 2. Transaminitis. DISCHARGE DISPOSITION: Home, on a low-fat diet as tolerated. DISCHARGE MEDICATIONS: No new medications. DISCHARGE FOLLOWUP: She is to follow up with her primary physician. Try to get an appointment in the [facility]. Abe Jefferson M.D. DR: VALARIE JOB#: [id number] CC:
== END 2018-10-25 18:15 | disposition home or self-care (01) ==
LOC: EMR 18:40 → 3E 19:39 → EDBEDREQ 21:00 → 3E 23:23
DX: K80.00 Calculus of gallbladder with acute cholecystitis without obstruction (principal); R74.0 Nonspecific elevation of levels of transaminase and lactic acid dehydrogenase [LDH]; E66.9 Obesity, unspecified; Z68.33 Body mass index [BMI] 33.0-33.9, adult
CPT/HCPCS: 36415; 71045; 74177; 74181; 76700; 80053; 81003; 81025; 82248; 83690; 84702; 85025; 85610; 85730; 93005; 96361; 96374; 96375; 99285; J2405